=== PATIENT | male | born 1970 | race Caucasian/White ===

== ENCOUNTER 2019-01-17 14:23 | Outpatient (CLI) | payer BC ==
--- NOTE | 2019-01-17 18:26 | ULT ---
CAROTID ULTRASOUND WITH RÍOS SCALE AND DOPPLER DUPLEX COLOR FLOW IMAGING SPECTRAL ANALYSIS PERFORMED: 01/17/19 CLINICAL INDICATION: Carotid bruit FINDINGS: There is mild intimal thickening/plaque formation atherosclerotic calcification of the carotid arteri es. PEAK SYSTOLIC VELOCITY (CM/S): Right CCA 105 Left CCA 116 Right ICA 79 Left ICA 88 There is antegrade flow within the visualized bilateral vertebral arteries. IMPRESSION: 1. No hemodynamically significant stenosis of the right internal carotid artery. 2. No hemodynamically significant stenosis of the left internal carotid artery. POS: C
== END 2019-01-17 14:24 | disposition home or self-care (01) ==
LOC: BICULT 14:23
PROVIDERS: ATTEND Internal Medicine
DX: R09.89 Other specified symptoms and signs involving the circulatory and respiratory systems (principal)
CPT/HCPCS: 93880